=== PATIENT | female | born 1965 | race Caucasian/White ===

== ENCOUNTER 2018-02-11 23:11 | Emergency (ER) | payer OTHER ==
[~2018-02-11] VITALS: Ht 167.6 cm; Wt 77.2 kg
[2018-02-12] MEDS ORDERED: ONMEL200 MG PO (01:16)
[2018-02-12] MEDS ORDERED: CLEOCIN300 MG PO (01:16)
[2018-02-12 01:56] VITALS: BP 117/82
== END 2018-02-12 01:56 | disposition home or self-care (01) ==
LOC: EME 23:11
PROC: 0H9GXZZ Drainage of Left Hand Skin, External Approach (ICD-10-PCS; principal; 2018-02-11)
DX: L02.512 Cutaneous abscess of left hand (principal); L03.012 Cellulitis of left finger; B36.9 Superficial mycosis, unspecified; Z86.718 Personal history of other venous thrombosis and embolism
CPT/HCPCS: 99281; 99284